=== PATIENT | female | born 1965 | race Caucasian/White ===

== ENCOUNTER → 2018-08-08 | Outpatient (CLI) | payer BC ==
--- NOTE | 2018-08-09 08:15 | RADIOLOGY IMAGING REPORT ---
FACILITY: [facility] [place] PATIENT NAME: SOHAN COPELAND : [id number] MR: [id number] V: [id number] EXAM DATE: ORDERING PHYSICIAN: LORY LOCKE TECHNOLOGIST: Gloria Caballero PROCEDURE:BILATERAL DIGITAL SCREENING MAMMOGRAM WITH CAD ASSISTED INTERPRETATION & 3D TOMOSYNTHESIS COMPARISON:Prior mammograms 03/13/16, 05/08/14. INDICATIONS:screening FINDINGS: There is scattered fibroglandular density seen throughout the breasts. The parenchymal pattern has remained stable allowing for difference in mammographic technique & patient positioning. DIAGNOSTIC CATEGORY 1--NEGATIVE. RECOMMENDATIONS: ROUTINE MAMMOGRAM AND CLINICAL EVALUATION. IMPRESSION: BIRADS 1: Negative. No significant abnormality is seen. Dictated by: Tiana Fabian M.D. on 08/08/2018 at 15:31 Transcribed by: JOSEPH on 08/08/2018 at 15:38 Approved by: Tiana Fabian M.D. on 08/09/2018 at 8:14 [facility]
== END ==
LOC: MAMO 01:24
PROVIDERS: ATTEND Nurse Practitioner Psychiatric/Mental Health
DX: Z12.31 Encounter for screening mammogram for malignant neoplasm of breast (principal)
CPT/HCPCS: 77063; 77067